=== PATIENT | male | born 1985 | race African-American/Black ===

== ENCOUNTER 2022-02-01 14:43 | Inpatient (IN) | payer MEDICAID ==
[~2022-02-01] VITALS: Ht 177.8 cm; Wt 91.7 kg
[2022-02-01] MEDS ORDERED: ACETAMINOPHEN 650MG SUPP PR STA (14:56)
[2022-02-01] MEDS ORDERED: SODIUM CHLORIDE 0.9% 1000ML BAG (SEPSIS BOLUS) IV ONE (15:00)
[2022-02-01 15:23] LABS: INR 1.2; PROTHROMBIN TIME 12.6 sec (9.6-11.0)
[2022-02-01 15:26] LABS: CHLORIDE 93 mEq/L (98-107)
[2022-02-01 15:28] LABS: HEMATOCRIT. 37.2 % (42.0-52.0); HEMOGLOBIN. 12.4 g/dL (14.0-18.0); MEAN CORPUSCULAR HEMOGLOBIN 27.6 pg (28.0-32.0); MEAN CORPUSCULAR VOLUME 82.7 fL (80.0-94.0); MEAN PLATELET VOLUME 10.8 fl (7.4-10.4); PLATELET 54 x1000/uL (130-400); RED BLOOD CELL COUNT 4.49 mill/uL (4.7-6.1); RED CELL DISTRIBUTION WIDTH 13.3 % (11.6-14.6)
[2022-02-01] MEDS ORDERED: VANCOMYCIN 1G PREMIX 200 ML IV ONE (15:30)
[2022-02-01] MEDS ORDERED: VANCOMYCIN 1GM PMX (XELLIA) 200 ML IV NR (15:30)
[2022-02-01] MEDS ORDERED: LORAZEPAM 2MG/ML CPJ IV NR (15:30)
[2022-02-01] MEDS ORDERED: PIPERACILLIN/TAZ 3.375G PREMIX 50 ML IV NR (15:30)
[2022-02-01 15:31] LABS: ETHANOL BLOOD < 10 mg/dL
[2022-02-01] MEDS ORDERED: ACETAMINOPHEN 325MG TABLET PO NR (15:45)
[2022-02-01] MEDS ORDERED: ACETAMINOPHEN 325MG SUPP PR ONE (17:15)
[2022-02-01 17:21] LABS: PLATELET ESTIMATE DECREASED
[2022-02-01 17:25] LABS: CLARITY URINE TURBID (CLEAR); COLOR URINE DARK YELLOW (YELLOW); KETONES URINE TRACE (NEGATIVE); LEUKOCYTE ESTERASE URINE TRACE (NEGATIVE); NITRITE URINE NEGATIVE (NEGATIVE); OCCULT BLOOD URINE 3+ (NEGATIVE); PROTEIN URINE 2+ (NEGATIVE); SPECIFIC GRAVITY URINE 1.017 (1.005-1.030)
[2022-02-01] MEDS ORDERED: PANTOPRAZOLE SODIUM 40 MG/VIAL IV NR (17:37)
[2022-02-01 17:44] LABS: *AMPHETAMINES SCREEN URINE PRESUMTIVE POSITIVE (NEGATIVE); *BARBITURATES SCREEN URINE NEGATIVE (NEGATIVE); *BENZODIAZEPINES SCREEN URINE NEGATIVE (NEGATIVE); *COCAINE SCREEN URINE NEGATIVE (NEGATIVE)
[2022-02-01 17:45] LABS: CANNABINOID URINE SCREEN PRESUMTIVE POSITIVE (NEGATIVE); METHADONE URINE SCREEN NEGATIVE (NEGATIVE); OPIATES URINE SCREEN NEGATIVE (NEGATIVE); PHENCYCLIDINE URINE SCREEN PRESUMTIVE POSITIVE (NEGATIVE)
[2022-02-01 18:30] LABS: BG BASE EXCESS -2.2 mmol/L (-2.0-2.0); BG CARBOXYHEMOGLOBIN 0.3 % (0.5-1.5); BG DEOXYHEMOGLOBIN 6.1 % (0.0-5.0); BG FRACTION INSPIRED OXYGEN 21; BG HCO3 ACT 21.5 mmol/L (22.0-26.0); BG METHEMOGLOBIN 0.1 % (0.0-1.5); BG OXYGEN SATURATION 93.9 % (92.0-98.5); BG OXYHEMOGLOBIN 93.5 % (94.0-97.0); BG PCO2 33.2 mmHg (35.0-45.0); BG PH 7.429 (7.350-7.450); BG PO2 72.2 mmHg (75.0-100.0); BG SAMPLE SITE RIGHT RADIAL; BG TOTAL HEMOGLOBIN 11.1 g/dL (12.0-18.0); BG VENT MODE ROOM AIR
[2022-02-01] MEDS ORDERED: ZOLPIDEM TARTRATE 5MG TABLET PO PRN (19:00)
[2022-02-01] MEDS ORDERED: MAGNESIUM/ALUMINUM HYDROXIDE/SIMETHICONE 30ML UDC PO PRN (19:00)
[2022-02-01] MEDS ORDERED: DOCUSATE SODIUM 100MG CAPSULE PO PRN (19:00)
[2022-02-01] MEDS ORDERED: IPRATROPIUM/ALBUTEROL 0.5-3(2.5)MG/3ML NEB NEB PRN (19:00)
[2022-02-01] MEDS ORDERED: NITROGLYCERIN 0.4MG TABLET SL SL PRN (19:00)
[2022-02-01] MEDS: DEXT 5%/0.45% NACL 1000ML 1,000 ML IV SCH (19:30)
[2022-02-01 19:41] LABS: T4 FREE 1.29 ng/dL (0.76-1.46)
[2022-02-01 19:51] LABS: FOLIC ACID (FOLATE) SERUM >20 ng/mL ng/mL (>5.38)
[2022-02-01 20:03] LABS: VITAMIN B12 SERUM 1511 pg/mL (211-911)
[2022-02-01 23:00] VITALS: BP 131/75
[2022-02-01] MEDS ORDERED: PIPERACILLIN/TAZ 3.375G PREMIX 50 ML IV SCH (23:00)
[2022-02-02] VITALS (24 sets, daily range): BP systolic 81–143; BP diastolic 27–86
[2022-02-02] MEDS: PIPERACILLIN/TAZOBACTAM 3.375 G in DEXTROSE 5% WATER 50 ML IV SCH ×4 (00:06→22:32)
[2022-02-02 01:14] LABS: CREATINE KINASE MB FRACTION 12.5 ng/mL (0.5-3.6)
[2022-02-02 01:24] LABS: CREATINE KINASE 1790 IU/L (39-308)
[2022-02-02 05:44] LABS: CHLORIDE 102 mEq/L (98-107)
[2022-02-02] MEDS: DEXT 5%/0.45% NACL 1000ML 1,000 ML IV SCH ×2 (05:46→15:31)
[2022-02-02 05:51] LABS: CREATINE KINASE MB FRACTION 9.9 ng/mL (0.5-3.6); PHOSPHORUS 3.3 mg/dL (2.5-4.9)
[2022-02-02 05:57] LABS: HEMATOCRIT. 36.2 % (42.0-52.0); HEMOGLOBIN. 11.5 g/dL (14.0-18.0); MEAN CORPUSCULAR HEMOGLOBIN 27.1 pg (28.0-32.0); MEAN CORPUSCULAR VOLUME 85.1 fL (80.0-94.0); MEAN PLATELET VOLUME 12.1 fl (7.4-10.4); RED BLOOD CELL COUNT 4.25 mill/uL (4.7-6.1); RED CELL DISTRIBUTION WIDTH 14.5 % (11.6-14.6)
[2022-02-02] MEDS: DILTIAZEM HCL 60MG TABLET PO SCH ×4 (06:00→17:20)
[2022-02-02] MEDS ORDERED: VANCOMYCIN 1.25GM PMX (XELLIA) 250 ML IV NR (06:00)
[2022-02-02 06:35] LABS: PLATELET 46 x1000/uL (130-400)
[2022-02-02] MEDS: PANTOPRAZOLE SODIUM 40 MG/VIAL IV SCH ×2 (06:37→17:32)
[2022-02-02] MEDS ORDERED: DILTIAZEM HCL 5MG/ML 5ML VIAL IV SCH (06:55)
[2022-02-02] MEDS ORDERED: SODIUM CHLORIDE 0.9% 1,000 ML IV SCH (06:56)
[2022-02-02] MEDS ORDERED: SODIUM CHLORIDE 0.9% 1,000 ML IV ONE ×2 (07:30→16:00)
[2022-02-02] MEDS: ACETAMINOPHEN 650MG SUPP PR PRN ×2 (08:47→17:36)
[2022-02-02] MEDS ORDERED: ASPIRIN 325MG EC TABLET PO SCH (09:00)
[2022-02-02 13:50] LABS: NUCLEATED RED BLOOD CELLS 1 /100 WBC; PLATELET ESTIMATE MARKEDLY DECREASED
[2022-02-02] MEDS ORDERED: LACTULOSE 20G/30ML UDC PO SCH (15:42)
[2022-02-03] VITALS (13 sets, daily range): BP systolic 94–141; BP diastolic 52–101
[2022-02-03] MEDS: DEXT 5%/0.45% NACL 1000ML 1,000 ML IV SCH ×3 (02:56→21:40)
[2022-02-03] MEDS: ACETAMINOPHEN 650MG SUPP PR PRN (03:32)
[2022-02-03] MEDS: DILTIAZEM HCL 60MG TABLET PO SCH ×4 (06:00→17:49)
[2022-02-03] MEDS: PANTOPRAZOLE SODIUM 40 MG/VIAL IV SCH ×2 (06:29→19:11)
[2022-02-03] MEDS: PIPERACILLIN/TAZOBACTAM 3.375 G in DEXTROSE 5% WATER 50 ML IV SCH ×3 (06:30→23:17)
[2022-02-03 11:26] LABS: BASOPHILS % 0.5 % (0.0-2.0); EOSINOPHILS % 1.4 % (0.0-5.0); HEMATOCRIT. 34.4 % (42.0-52.0); MEAN CORPUSCULAR HEMOGLOBIN 27.1 pg (28.0-32.0); MEAN CORPUSCULAR VOLUME 84.5 fL (80.0-94.0); MEAN PLATELET VOLUME 11.2 fl (7.4-10.4); MONOCYTES % 3.7 % (2.0-8.0); NEUTROPHILS % 73.4 % (40.0-76.0); RED BLOOD CELL COUNT 4.07 mill/uL (4.7-6.1); RED CELL DISTRIBUTION WIDTH 14.6 % (11.6-14.6)
[2022-02-03 11:31] LABS: PLATELET 48 x1000/uL (130-400)
[2022-02-03] MEDS: VANCOMYCIN 1GM PMX (XELLIA) 200 ML IV SCH ×2 (11:45→23:18)
[2022-02-03 13:46] LABS: PLATELET ESTIMATE MARKEDLY DECREASED
[2022-02-03] MEDS: ONDANSETRON HCL 4MG/2ML INJ IV PRN (15:17)
[2022-02-03] MEDS: ACETAMINOPHEN 325MG TABLET PO PRN (16:16)
[2022-02-03] MEDS ORDERED: SODIUM CHLORIDE 0.9% 1,000 ML IV ONE (16:45)
[2022-02-04] VITALS (14 sets, daily range): BP systolic 95–164; BP diastolic 42–93
[2022-02-04] MEDS: PIPERACILLIN/TAZOBACTAM 3.375 G in DEXTROSE 5% WATER 50 ML IV SCH ×2 (05:59→14:01)
[2022-02-04] MEDS: DILTIAZEM HCL 60MG TABLET PO SCH ×2 (06:03)
[2022-02-04] MEDS: PANTOPRAZOLE SODIUM 40 MG/VIAL IV SCH ×2 (06:03→17:11)
[2022-02-04] MEDS: ACETAMINOPHEN 650MG SUPP PR PRN (08:00)
[2022-02-04] MEDS: DEXT 5%/0.45% NACL 1000ML 1,000 ML IV SCH ×2 (08:31→17:13)
[2022-02-04] MEDS: VANCOMYCIN 1GM PMX (XELLIA) 200 ML IV SCH (10:19)
[2022-02-04] MEDS ORDERED: METOCLOPRAMIDE HCL 10MG/2ML VIAL IV SCH (11:00)
[2022-02-04] MEDS: DILTIAZEM HCL 30MG TABLET PO SCH ×3 (12:59→23:16)
[2022-02-04 15:35] LABS: BASOPHILS % 0.4 % (0.0-2.0); EOSINOPHILS % 0.3 % (0.0-5.0); HEMATOCRIT. 25.5 % (42.0-52.0); HEMOGLOBIN. 8.4 g/dL (14.0-18.0); LYMPHOCYTES % 11.7 % (20.0-50.0); MEAN CORPUSCULAR VOLUME 82.3 fL (80.0-94.0); MEAN PLATELET VOLUME 10.4 fl (7.4-10.4); MONOCYTES % 5.4 % (2.0-8.0); NEUTROPHILS % 82.2 % (40.0-76.0); PLATELET 77 x1000/uL (130-400); RED CELL DISTRIBUTION WIDTH 13.9 % (11.6-14.6)
[2022-02-04] MEDS ORDERED: AMPICILLIN SOD/SULBACTAM NA 3 G in SODIUM CHLORIDE 0.9% 100 ML IV SCH (17:00)
[2022-02-04] MEDS: AMPICILLIN SOD/SULBACTAM NA 3 G in SODIUM CHLORIDE 0.9% 100 ML IV SCH ×2 (17:12→23:16)
[2022-02-04] MEDS ORDERED: VANCOMYCIN 1GM PMX (XELLIA) 200 ML IV SCH (18:00)
[2022-02-04] MEDS: METRONIDAZOLE 500MG TABLET PO SCH ×2 (18:43→22:11)
[2022-02-04] MEDS: ACETAMINOPHEN 325MG TABLET PO PRN (23:14)
[2022-02-05] VITALS (7 sets, daily range): BP systolic 127–149; BP diastolic 50–85
[2022-02-05] MEDS: DEXT 5%/0.45% NACL 1000ML 1,000 ML IV SCH ×3 (03:30→22:59)
[2022-02-05] MEDS: DILTIAZEM HCL 30MG TABLET PO SCH ×4 (05:25→23:49)
[2022-02-05] MEDS: AMPICILLIN SOD/SULBACTAM NA 3 G in SODIUM CHLORIDE 0.9% 100 ML IV SCH ×4 (05:25→23:47)
[2022-02-05] MEDS: PANTOPRAZOLE SODIUM 40 MG/VIAL IV SCH ×2 (05:25→17:39)
[2022-02-05] MEDS: METRONIDAZOLE 500MG TABLET PO SCH ×3 (05:25→21:52)
[2022-02-05 10:24] LABS: BASOPHILS % 0.1 % (0.0-2.0); EOSINOPHILS % 0.2 % (0.0-5.0); HEMATOCRIT. 25.9 % (42.0-52.0); HEMOGLOBIN. 8.8 g/dL (14.0-18.0); LYMPHOCYTES % 10.2 % (20.0-50.0); MEAN CORPUSCULAR HEMOGLOBIN 27.6 pg (28.0-32.0); MEAN CORPUSCULAR VOLUME 81.5 fL (80.0-94.0); MEAN PLATELET VOLUME 9.5 fl (7.4-10.4); MONOCYTES % 5.2 % (2.0-8.0); NEUTROPHILS % 84.3 % (40.0-76.0); PLATELET 107 x1000/uL (130-400); RED BLOOD CELL COUNT 3.18 mill/uL (4.7-6.1); RED CELL DISTRIBUTION WIDTH 13.4 % (11.6-14.6)
[2022-02-05 10:35] LABS: CHLORIDE 104 mEq/L (98-107)
[2022-02-05 10:52] LABS: VANCOMYCIN TROUGH 2.2 ug/mL (5.0-10.0)
[2022-02-05 11:58] LABS: HEPATITIS B SURFACE ANTIGEN NEGATIVE
[2022-02-05] MEDS ORDERED: ENOXAPARIN 100MG/ML SYR SUBCUT SCH (12:00)
[2022-02-05] MEDS: ACETAMINOPHEN 325MG TABLET PO PRN ×2 (16:04→20:36)
[2022-02-05] MEDS ORDERED: POTASSIUM CHLORIDE INJ 40 MEQ in DEXT 5% WATER 250 ML IV ONE (19:30)
[2022-02-05] MEDS ORDERED: POTASSIUM CHLORIDE 20MEQ TABLET SR PO NR (19:30)
[2022-02-05] MEDS: KCL 20MEQ/100ML X 2 FOR TOTAL KCL 40MEQ/200ML IV SCH ×2 (20:37→22:56)
[2022-02-05] MEDS: ENOXAPARIN 100MG/ML SYR SUBCUT SCH (21:53)
[2022-02-06] VITALS (11 sets, daily range): BP systolic 139–160; BP diastolic 50–102
[2022-02-06] MEDS: ACETAMINOPHEN 325MG TABLET PO PRN ×2 (03:19→21:15)
[2022-02-06] MEDS: AMPICILLIN SOD/SULBACTAM NA 3 G in SODIUM CHLORIDE 0.9% 100 ML IV SCH ×4 (05:08→23:32)
[2022-02-06] MEDS: PANTOPRAZOLE SODIUM 40 MG/VIAL IV SCH ×2 (05:08→17:05)
[2022-02-06] MEDS: DILTIAZEM HCL 30MG TABLET PO SCH ×4 (05:08→23:33)
[2022-02-06] MEDS: METRONIDAZOLE 500MG TABLET PO SCH ×3 (05:13→21:15)
[2022-02-06 07:09] LABS: HIV SCREEN 4G Non Reactive (Non Reactive)
[2022-02-06] MEDS: DEXT 5%/0.45% NACL 1000ML 1,000 ML IV SCH ×2 (09:20→19:30)
[2022-02-06] MEDS: ENOXAPARIN 100MG/ML SYR SUBCUT SCH ×2 (09:20→21:16)
[2022-02-06] MEDS: CLONIDINE 0.1MG TABLET PO PRN (09:21)
[2022-02-06] MEDS: LACTULOSE 20G/30ML UDC PO SCH (21:15)
[2022-02-07] VITALS (10 sets, daily range): BP systolic 128–162; BP diastolic 65–94
[2022-02-07] MEDS: DEXT 5%/0.45% NACL 1000ML 1,000 ML IV SCH ×2 (04:35→15:53)
[2022-02-07] MEDS: LACTULOSE 20G/30ML UDC PO SCH ×3 (05:17→21:36)
[2022-02-07] MEDS: PANTOPRAZOLE SODIUM 40 MG/VIAL IV SCH ×2 (05:17→17:37)
[2022-02-07] MEDS: DILTIAZEM HCL 30MG TABLET PO SCH ×3 (05:18→17:37)
[2022-02-07] MEDS: AMPICILLIN SOD/SULBACTAM NA 3 G in SODIUM CHLORIDE 0.9% 100 ML IV SCH ×3 (05:19→17:37)
[2022-02-07] MEDS: ACETAMINOPHEN 325MG TABLET PO PRN ×3 (05:19→22:03)
[2022-02-07] MEDS: METRONIDAZOLE 500MG TABLET PO SCH ×3 (05:21→21:36)
[2022-02-07 06:51] LABS: CHLORIDE 103 mEq/L (98-107)
[2022-02-07 06:58] LABS: BASOPHILS % 0.2 % (0.0-2.0); EOSINOPHILS % 0.3 % (0.0-5.0); HEMATOCRIT. 21.2 % (42.0-52.0); HEMOGLOBIN. 7.3 g/dL (14.0-18.0); LYMPHOCYTES % 7.6 % (20.0-50.0); MEAN CORPUSCULAR HEMOGLOBIN 28.7 pg (28.0-32.0); MEAN CORPUSCULAR VOLUME 83.3 fL (80.0-94.0); MEAN PLATELET VOLUME 9.6 fl (7.4-10.4); MONOCYTES % 5.2 % (2.0-8.0); NEUTROPHILS % 86.7 % (40.0-76.0); PLATELET 142 x1000/uL (130-400); RED BLOOD CELL COUNT 2.55 mill/uL (4.7-6.1); RED CELL DISTRIBUTION WIDTH 13.6 % (11.6-14.6)
[2022-02-07] MEDS: ENOXAPARIN 100MG/ML SYR SUBCUT SCH ×2 (08:39→21:36)
[2022-02-07] MEDS ORDERED: POTASSIUM CHLORIDE INJ 40 MEQ in DEXT 5% WATER 250 ML IV ONE (19:30)
[2022-02-07] MEDS ORDERED: POTASSIUM CHLORIDE 20MEQ/PACKET PO NR (20:00)
[2022-02-07] MEDS: KCL 20MEQ/100ML X 2 FOR TOTAL KCL 40MEQ/200ML IV SCH (21:35)
[2022-02-08] VITALS (16 sets, daily range): BP systolic 100–160; BP diastolic 49–98
[2022-02-08] MEDS: KCL 20MEQ/100ML X 2 FOR TOTAL KCL 40MEQ/200ML IV SCH ×3 (00:45→15:52)
[2022-02-08] MEDS: AMPICILLIN SOD/SULBACTAM NA 3 G in SODIUM CHLORIDE 0.9% 100 ML IV SCH ×4 (00:45→18:56)
[2022-02-08] MEDS: DILTIAZEM HCL 30MG TABLET PO SCH ×5 (00:46→23:07)
[2022-02-08] MEDS: DEXT 5%/0.45% NACL 1000ML 1,000 ML IV SCH ×3 (01:49→22:57)
[2022-02-08] MEDS: METRONIDAZOLE 500MG TABLET PO SCH ×3 (06:06→21:52)
[2022-02-08] MEDS: LACTULOSE 20G/30ML UDC PO SCH ×4 (06:06→21:55)
[2022-02-08] MEDS: PANTOPRAZOLE SODIUM 40 MG/VIAL IV SCH ×2 (06:06→16:42)
[2022-02-08] MEDS: GUAIFENESIN 200MG/10ML SUGAR FREE UDC PO PRN ×2 (08:19→16:42)
[2022-02-08] MEDS: ENOXAPARIN 100MG/ML SYR SUBCUT SCH (08:20)
[2022-02-08] MEDS: ACETAMINOPHEN 325MG TABLET PO PRN ×2 (08:21→20:26)
[2022-02-08] MEDS ORDERED: POTASSIUM CHLORIDE INJ 40 MEQ in DEXT 5% WATER 250 ML IV ONE (13:15)
[2022-02-08] MEDS ORDERED: POTASSIUM CHLORIDE 20MEQ/PACKET PO NR (13:24)
[2022-02-08 18:59] LABS: BASOPHILS % 0.3 % (0.0-2.0); EOSINOPHILS % 0.3 % (0.0-5.0); LYMPHOCYTES % 8.8 % (20.0-50.0); MEAN CORPUSCULAR HEMOGLOBIN 27.7 pg (28.0-32.0); MEAN PLATELET VOLUME 9.5 fl (7.4-10.4); MONOCYTES % 3.4 % (2.0-8.0); NEUTROPHILS % 87.2 % (40.0-76.0); PLATELET 200 x1000/uL (130-400); RED BLOOD CELL COUNT 2.34 mill/uL (4.7-6.1); RED CELL DISTRIBUTION WIDTH 13.4 % (11.6-14.6)
[2022-02-08 19:09] LABS: HEMATOCRIT. 19.4 % (42.0-52.0); HEMOGLOBIN. 6.5 g/dL (14.0-18.0)
[2022-02-08 19:10] LABS: CHLORIDE 106 mEq/L (98-107)
[2022-02-09] VITALS (15 sets, daily range): BP systolic 111–168; BP diastolic 69–116
[2022-02-09] MEDS: AMPICILLIN SOD/SULBACTAM NA 3 G in SODIUM CHLORIDE 0.9% 100 ML IV SCH ×4 (00:39→17:19)
[2022-02-09] MEDS: ACETAMINOPHEN 325MG TABLET PO PRN ×2 (01:28→08:16)
[2022-02-09] MEDS: ONDANSETRON HCL 4MG/2ML INJ IV PRN ×2 (02:23→19:51)
[2022-02-09] MEDS: KETOROLAC 15MG/ML VIAL IV PRN ×2 (04:40→19:51)
[2022-02-09] MEDS: METRONIDAZOLE 500MG TABLET PO SCH ×2 (06:49→13:23)
[2022-02-09] MEDS: PANTOPRAZOLE SODIUM 40 MG/VIAL IV SCH ×2 (06:49→17:18)
[2022-02-09] MEDS: DILTIAZEM HCL 30MG TABLET PO SCH ×3 (06:50→17:20)
[2022-02-09] MEDS: LACTULOSE 20G/30ML UDC PO SCH ×3 (06:50→21:42)
[2022-02-09] MEDS: DEXT 5%/0.45% NACL 1000ML 1,000 ML IV SCH (08:15)
[2022-02-09] MEDS ORDERED: SORBITOL 70% SOLN 30ML PO NR (13:00)
[2022-02-09 14:07] LABS: BASOPHILS % 0.1 % (0.0-2.0); EOSINOPHILS % 0.2 % (0.0-5.0); HEMATOCRIT. 25.1 % (42.0-52.0); LYMPHOCYTES % 8.2 % (20.0-50.0); MEAN CORPUSCULAR HEMOGLOBIN 27.3 pg (28.0-32.0); MEAN CORPUSCULAR VOLUME 83.3 fL (80.0-94.0); MEAN PLATELET VOLUME 9.2 fl (7.4-10.4); MONOCYTES % 4.8 % (2.0-8.0); NEUTROPHILS % 86.7 % (40.0-76.0); PLATELET 263 x1000/uL (130-400); RED BLOOD CELL COUNT 3.02 mill/uL (4.7-6.1); RED CELL DISTRIBUTION WIDTH 13.9 % (11.6-14.6)
[2022-02-09 14:16] LABS: INR 1.3
[2022-02-09 14:31] LABS: HEMOGLOBIN. 8.2 g/dL (14.0-18.0)
[2022-02-09 14:34] LABS: CHLORIDE 110 mEq/L (98-107)
[2022-02-09 21:04] LABS: HEMATOCRIT 23.6 % (42.0-52.0); HEMOGLOBIN 7.8 g/dL (14.0-18.0)
[2022-02-10] VITALS (12 sets, daily range): BP systolic 135–185; BP diastolic 68–100
[2022-02-10] MEDS: DILTIAZEM HCL 30MG TABLET PO SCH ×6 (00:10→23:20)
[2022-02-10] MEDS: AMPICILLIN SOD/SULBACTAM NA 3 G in SODIUM CHLORIDE 0.9% 100 ML IV SCH ×5 (00:10→23:20)
[2022-02-10] MEDS: ACETAMINOPHEN 325MG TABLET PO PRN ×3 (00:14→23:21)
[2022-02-10] MEDS: DEXT 5%/0.45% NACL 1000ML 1,000 ML IV SCH ×2 (00:25→12:39)
[2022-02-10 01:10] LABS: HEMATOCRIT 21.9 % (42.0-52.0); HEMOGLOBIN 7.4 g/dL (14.0-18.0)
[2022-02-10] MEDS: LACTULOSE 20G/30ML UDC PO SCH ×3 (05:57→22:10)
[2022-02-10] MEDS: PANTOPRAZOLE SODIUM 40 MG/VIAL IV SCH ×2 (05:57→17:56)
[2022-02-10 06:31] LABS: BASOPHILS % 0.5 % (0.0-2.0); EOSINOPHILS % 0.1 % (0.0-5.0); HEMOGLOBIN. 7.1 g/dL (14.0-18.0); LYMPHOCYTES % 9.8 % (20.0-50.0); MEAN CORPUSCULAR HEMOGLOBIN 28.5 pg (28.0-32.0); MEAN PLATELET VOLUME 8.7 fl (7.4-10.4); MONOCYTES % 5.7 % (2.0-8.0); NEUTROPHILS % 83.9 % (40.0-76.0); PLATELET 247 x1000/uL (130-400); RED BLOOD CELL COUNT 2.49 mill/uL (4.7-6.1); RED CELL DISTRIBUTION WIDTH 13.7 % (11.6-14.6)
[2022-02-10 07:07] LABS: HEMATOCRIT. 20.7 % (42.0-52.0)
[2022-02-10 07:12] LABS: CHLORIDE 109 mEq/L (98-107)
[2022-02-10] MEDS ORDERED: FUROSEMIDE 40MG/4ML VIAL IVP NR (08:45)
[2022-02-10] MEDS: CLONIDINE 0.1MG TABLET PO PRN (09:01)
[2022-02-10 11:37] LABS: HEMATOCRIT 24.4 % (42.0-52.0); HEMOGLOBIN 8.3 g/dL (14.0-18.0)
[2022-02-10] MEDS: KETOROLAC 15MG/ML VIAL IV PRN (16:50)
[2022-02-10] MEDS: ONDANSETRON HCL 4MG/2ML INJ IV PRN (20:11)
[2022-02-11] VITALS (12 sets, daily range): BP systolic 116–184; BP diastolic 47–101
[2022-02-11 01:54] LABS: BASOPHILS % 0.2 % (0.0-2.0); EOSINOPHILS % 0.2 % (0.0-5.0); HEMATOCRIT. 22.2 % (42.0-52.0); HEMOGLOBIN. 7.5 g/dL (14.0-18.0); LYMPHOCYTES % 7.4 % (20.0-50.0); MEAN CORPUSCULAR HEMOGLOBIN 28.2 pg (28.0-32.0); MEAN CORPUSCULAR VOLUME 83.2 fL (80.0-94.0); MEAN PLATELET VOLUME 8.9 fl (7.4-10.4); MONOCYTES % 3.6 % (2.0-8.0); NEUTROPHILS % 88.6 % (40.0-76.0); PLATELET 330 x1000/uL (130-400); RED BLOOD CELL COUNT 2.67 mill/uL (4.7-6.1); RED CELL DISTRIBUTION WIDTH 13.6 % (11.6-14.6)
[2022-02-11 01:58] LABS: CHLORIDE 105 mEq/L (98-107)
[2022-02-11] MEDS: DEXT 5%/0.45% NACL 1000ML 1,000 ML IV SCH ×3 (02:51→19:30)
[2022-02-11] MEDS: LACTULOSE 20G/30ML UDC PO SCH ×3 (06:00→21:46)
[2022-02-11] MEDS: PANTOPRAZOLE SODIUM 40 MG/VIAL IV SCH ×2 (06:05→18:10)
[2022-02-11] MEDS: AMPICILLIN SOD/SULBACTAM NA 3 G in SODIUM CHLORIDE 0.9% 100 ML IV SCH ×2 (06:05→12:08)
[2022-02-11] MEDS: DILTIAZEM HCL 30MG TABLET PO SCH ×3 (06:06→18:10)
[2022-02-11] MEDS: GUAIFENESIN 200MG/10ML SUGAR FREE UDC PO PRN (09:46)
[2022-02-11] MEDS: KETOROLAC 15MG/ML VIAL IV PRN (14:27)
[2022-02-11] MEDS ORDERED: CEFTRIAXONE 2 G PREMIX 50 ML IV SCH (14:45)
[2022-02-11] MEDS: ACETAMINOPHEN 325MG TABLET PO PRN (16:55)
[2022-02-11] MEDS: CEFTRIAXONE 2 G in DEXTROSE 5% WATER 50 ML IV SCH (16:55)
[2022-02-11] MEDS: METRONIDAZOLE 500MG TABLET PO SCH (22:32)
[2022-02-12] VITALS (15 sets, daily range): BP systolic 127–170; BP diastolic 65–113
[2022-02-12] MEDS: DILTIAZEM HCL 30MG TABLET PO SCH ×5 (01:45→23:24)
[2022-02-12] MEDS: KETOROLAC 15MG/ML VIAL IV PRN (01:56)
[2022-02-12] MEDS: ACETAMINOPHEN 325MG TABLET PO PRN ×3 (02:30→20:40)
[2022-02-12] MEDS: LACTULOSE 20G/30ML UDC PO SCH ×3 (05:23→22:18)
[2022-02-12] MEDS: PANTOPRAZOLE SODIUM 40 MG/VIAL IV SCH ×2 (06:08→20:44)
[2022-02-12] MEDS: DEXT 5%/0.45% NACL 1000ML 1,000 ML IV SCH ×2 (06:09→12:26)
[2022-02-12] MEDS: METRONIDAZOLE 500MG TABLET PO SCH ×3 (06:09→22:18)
[2022-02-12 06:22] LABS: BASOPHILS % 0.3 % (0.0-2.0); EOSINOPHILS % 0.1 % (0.0-5.0); HEMATOCRIT. 21.7 % (42.0-52.0); HEMOGLOBIN. 7.4 g/dL (14.0-18.0); LYMPHOCYTES % 8.4 % (20.0-50.0); MEAN CORPUSCULAR HEMOGLOBIN 28.1 pg (28.0-32.0); MEAN PLATELET VOLUME 8.5 fl (7.4-10.4); MONOCYTES % 6.4 % (2.0-8.0); NEUTROPHILS % 84.8 % (40.0-76.0); PLATELET 427 x1000/uL (130-400); RED BLOOD CELL COUNT 2.64 mill/uL (4.7-6.1); RED CELL DISTRIBUTION WIDTH 14.3 % (11.6-14.6)
[2022-02-12 07:12] LABS: CHLORIDE 108 mEq/L (98-107)
[2022-02-12] MEDS: CEFTRIAXONE 2 G in DEXTROSE 5% WATER 50 ML IV SCH (12:26)
[2022-02-12] MEDS: FUROSEMIDE 20MG/2ML VIAL IVP SCH (13:59)
[2022-02-12] MEDS: ONDANSETRON HCL 4MG/2ML INJ IV PRN (15:45)
[2022-02-12] MEDS: CLONIDINE 0.1MG TABLET PO PRN (22:18)
[2022-02-13] VITALS (12 sets, daily range): BP systolic 131–165; BP diastolic 59–96
[2022-02-13] MEDS: DEXT 5%/0.45% NACL 1000ML 1,000 ML IV SCH ×3 (00:59→22:20)
[2022-02-13] MEDS: LACTULOSE 20G/30ML UDC PO SCH ×3 (05:30→22:00)
[2022-02-13] MEDS: DILTIAZEM HCL 30MG TABLET PO SCH ×3 (05:30→17:45)
[2022-02-13] MEDS: METRONIDAZOLE 500MG TABLET PO SCH ×3 (05:31→22:19)
[2022-02-13 05:50] LABS: BASOPHILS % 0.4 % (0.0-2.0); EOSINOPHILS % 0.1 % (0.0-5.0); HEMOGLOBIN. 8.8 g/dL (14.0-18.0); LYMPHOCYTES % 11.1 % (20.0-50.0); MEAN CORPUSCULAR VOLUME 82.9 fL (80.0-94.0); MEAN PLATELET VOLUME 8.3 fl (7.4-10.4); MONOCYTES % 8.5 % (2.0-8.0); NEUTROPHILS % 79.9 % (40.0-76.0); PLATELET 472 x1000/uL (130-400); RED BLOOD CELL COUNT 3.02 mill/uL (4.7-6.1); RED CELL DISTRIBUTION WIDTH 14.4 % (11.6-14.6)
[2022-02-13 05:53] LABS: INR 1.3; PROTHROMBIN TIME 13.4 sec (9.6-11.0)
[2022-02-13 06:32] LABS: CHLORIDE 105 mEq/L (98-107)
[2022-02-13] MEDS: PANTOPRAZOLE SODIUM 40 MG/VIAL IV SCH ×2 (08:34→20:10)
[2022-02-13] MEDS: FUROSEMIDE 20MG/2ML VIAL IVP SCH (08:35)
[2022-02-13] MEDS ORDERED: PROPOFOL 200MG/20ML VIAL IV ONE (11:31)
[2022-02-13] MEDS ORDERED: MIDAZOLAM HCL 5 MG/5 ML VIAL ONE (11:31)
[2022-02-13] MEDS ORDERED: LIDOCAINE HCL 1% 20ML VIAL (Pyxis) INJ ONE (11:31)
[2022-02-13] MEDS ORDERED: PHENYLEPHRINE HCL 10 MG/ML 1ML (IV VIAL) IV ONE (12:52)
[2022-02-13] MEDS: CEFTRIAXONE 2 G in DEXTROSE 5% WATER 50 ML IV SCH (15:23)
[2022-02-13] MEDS: SUCRALFATE 1G TABLET PO SCH ×2 (17:45→20:10)
[2022-02-13] MEDS: ACETAMINOPHEN 325MG TABLET PO PRN (20:10)
[2022-02-14] VITALS (11 sets, daily range): BP systolic 142–170; BP diastolic 67–97
[2022-02-14] MEDS: DILTIAZEM HCL 30MG TABLET PO SCH ×5 (00:36→23:46)
[2022-02-14] MEDS: METRONIDAZOLE 500MG TABLET PO SCH ×3 (05:35→22:19)
[2022-02-14] MEDS: LACTULOSE 20G/30ML UDC PO SCH ×3 (05:38→22:00)
[2022-02-14 06:23] LABS: CHLORIDE 107 mEq/L (98-107)
[2022-02-14] MEDS: PANTOPRAZOLE SODIUM 40 MG/VIAL IV SCH ×2 (08:44→20:51)
[2022-02-14] MEDS: FUROSEMIDE 20MG/2ML VIAL IVP SCH (08:44)
[2022-02-14] MEDS: SUCRALFATE 1G TABLET PO SCH ×4 (08:44→20:51)
[2022-02-14] MEDS: DEXT 5%/0.45% NACL 1000ML 1,000 ML IV SCH ×2 (08:44→17:03)
[2022-02-14] MEDS: CEFTRIAXONE 2 G in DEXTROSE 5% WATER 50 ML IV SCH (14:04)
[2022-02-14] MEDS: GUAIFENESIN 200MG/10ML SUGAR FREE UDC PO PRN (14:04)
[2022-02-14] MEDS: ACETAMINOPHEN 325MG TABLET PO PRN (19:18)
[2022-02-15] VITALS (12 sets, daily range): BP systolic 129–161; BP diastolic 81–98
[2022-02-15] MEDS: DEXT 5%/0.45% NACL 1000ML 1,000 ML IV SCH ×3 (03:19→23:21)
[2022-02-15] MEDS: ONDANSETRON HCL 4MG/2ML INJ IV PRN (03:20)
[2022-02-15] MEDS: METRONIDAZOLE 500MG TABLET PO SCH ×3 (05:42→21:36)
[2022-02-15] MEDS: DILTIAZEM HCL 30MG TABLET PO SCH ×4 (05:43→23:20)
[2022-02-15] MEDS: LACTULOSE 20G/30ML UDC PO SCH ×3 (05:46→21:39)
[2022-02-15 06:04] LABS: BASOPHILS % 0.4 % (0.0-2.0); EOSINOPHILS % 0.1 % (0.0-5.0); HEMATOCRIT. 26.4 % (42.0-52.0); HEMOGLOBIN. 8.8 g/dL (14.0-18.0); LYMPHOCYTES % 15.7 % (20.0-50.0); MEAN CORPUSCULAR HEMOGLOBIN 28.3 pg (28.0-32.0); MEAN CORPUSCULAR VOLUME 84.6 fL (80.0-94.0); MEAN PLATELET VOLUME 7.9 fl (7.4-10.4); MONOCYTES % 12.6 % (2.0-8.0); NEUTROPHILS % 71.2 % (40.0-76.0); PLATELET 538 x1000/uL (130-400); RED BLOOD CELL COUNT 3.12 mill/uL (4.7-6.1); RED CELL DISTRIBUTION WIDTH 14.7 % (11.6-14.6)
[2022-02-15] MEDS: CLONIDINE 0.1MG TABLET PO PRN (06:14)
[2022-02-15 06:33] LABS: CHLORIDE 105 mEq/L (98-107)
[2022-02-15] MEDS: SUCRALFATE 1G TABLET PO SCH ×4 (07:30→21:36)
[2022-02-15] MEDS: PANTOPRAZOLE SODIUM 40 MG/VIAL IV SCH ×2 (09:26→21:36)
[2022-02-15] MEDS: FUROSEMIDE 20MG/2ML VIAL IVP SCH (09:26)
[2022-02-15] MEDS: CEFTRIAXONE 2 G in DEXTROSE 5% WATER 50 ML IV SCH (15:35)
[2022-02-16] VITALS (7 sets, daily range): BP systolic 137–158; BP diastolic 86–96
[2022-02-16] MEDS: LACTULOSE 20G/30ML UDC PO SCH ×3 (06:00→20:58)
[2022-02-16] MEDS: SUCRALFATE 1G TABLET PO SCH ×4 (06:03→20:57)
[2022-02-16] MEDS: METRONIDAZOLE 500MG TABLET PO SCH ×3 (06:03→20:58)
[2022-02-16] MEDS: DILTIAZEM HCL 30MG TABLET PO SCH ×3 (06:05→17:59)
[2022-02-16] MEDS: PANTOPRAZOLE SODIUM 40 MG/VIAL IV SCH ×2 (08:53→20:58)
[2022-02-16] MEDS: FUROSEMIDE 20MG/2ML VIAL IVP SCH (08:53)
[2022-02-16] MEDS: DEXT 5%/0.45% NACL 1000ML 1,000 ML IV SCH ×2 (08:53→15:02)
[2022-02-16] MEDS: ACETAMINOPHEN 325MG TABLET PO PRN (12:03)
[2022-02-16] MEDS: CEFTRIAXONE 2 G in DEXTROSE 5% WATER 50 ML IV SCH (15:02)
[2022-02-17] VITALS (7 sets, daily range): BP systolic 132–167; BP diastolic 72–90
[2022-02-17] MEDS: DILTIAZEM HCL 30MG TABLET PO SCH ×4 (00:19→17:28)
[2022-02-17] MEDS: DEXT 5%/0.45% NACL 1000ML 1,000 ML IV SCH ×2 (00:19→15:28)
[2022-02-17] MEDS: LACTULOSE 20G/30ML UDC PO SCH ×3 (06:00→22:00)
[2022-02-17] MEDS: METRONIDAZOLE 500MG TABLET PO SCH ×3 (06:09→22:18)
[2022-02-17] MEDS: SUCRALFATE 1G TABLET PO SCH ×4 (06:11→22:18)
[2022-02-17 07:14] LABS: BASOPHILS % 0.5 % (0.0-2.0); EOSINOPHILS % 0.5 % (0.0-5.0); HEMATOCRIT. 27.6 % (42.0-52.0); HEMOGLOBIN. 9.3 g/dL (14.0-18.0); LYMPHOCYTES % 19.9 % (20.0-50.0); MEAN CORPUSCULAR HEMOGLOBIN 28.5 pg (28.0-32.0); MEAN CORPUSCULAR VOLUME 84.2 fL (80.0-94.0); MEAN PLATELET VOLUME 7.6 fl (7.4-10.4); MONOCYTES % 11.1 % (2.0-8.0); PLATELET 537 x1000/uL (130-400); RED BLOOD CELL COUNT 3.27 mill/uL (4.7-6.1)
[2022-02-17 07:23] LABS: CHLORIDE 106 mEq/L (98-107)
[2022-02-17] MEDS: PANTOPRAZOLE SODIUM 40 MG/VIAL IV SCH ×2 (09:07→21:00)
[2022-02-17] MEDS: FUROSEMIDE 20MG/2ML VIAL IVP SCH (09:08)
[2022-02-17] MEDS: CEFTRIAXONE 2 G in DEXTROSE 5% WATER 50 ML IV SCH (14:00)
[2022-02-18] VITALS: BP 138/80
[2022-02-18] MEDS: DILTIAZEM HCL 30MG TABLET PO SCH ×3 (00:58→12:29)
[2022-02-18] MEDS: DEXT 5%/0.45% NACL 1000ML 1,000 ML IV SCH ×2 (00:59→11:59)
[2022-02-18 04:00] VITALS: BP 135/83
[2022-02-18] MEDS: LACTULOSE 20G/30ML UDC PO SCH ×2 (06:00→13:56)
[2022-02-18] MEDS: METRONIDAZOLE 500MG TABLET PO SCH ×2 (06:27→14:06)
[2022-02-18] MEDS: SUCRALFATE 1G TABLET PO SCH ×2 (06:31→12:29)
[2022-02-18 07:29] LABS: BASOPHILS % 0.5 % (0.0-2.0); EOSINOPHILS % 0.6 % (0.0-5.0); HEMATOCRIT. 28.3 % (42.0-52.0); HEMOGLOBIN. 9.4 g/dL (14.0-18.0); LYMPHOCYTES % 21.4 % (20.0-50.0); MEAN CORPUSCULAR HEMOGLOBIN 28.1 pg (28.0-32.0); MEAN CORPUSCULAR VOLUME 84.6 fL (80.0-94.0); MEAN PLATELET VOLUME 7.7 fl (7.4-10.4); MONOCYTES % 11.6 % (2.0-8.0); NEUTROPHILS % 65.9 % (40.0-76.0); PLATELET 542 x1000/uL (130-400); RED BLOOD CELL COUNT 3.35 mill/uL (4.7-6.1); RED CELL DISTRIBUTION WIDTH 15.1 % (11.6-14.6)
[2022-02-18 07:52] LABS: CHLORIDE 104 mEq/L (98-107)
[2022-02-18 08:00] VITALS: BP 151/97
[2022-02-18] MEDS: PANTOPRAZOLE SODIUM 40 MG/VIAL IV SCH (08:32)
[2022-02-18] MEDS: FUROSEMIDE 20MG/2ML VIAL IVP SCH (08:32)
[2022-02-18 12:00] VITALS: BP 143/89
[2022-02-18] MEDS ORDERED: PROT40 MT (13:43)
[2022-02-18] MEDS ORDERED: AMLO5TAB4 MT (13:43)
[2022-02-18] MEDS ORDERED: SUCR1TAB30 MT (13:43)
[2022-02-18 13:50] VITALS: BP 143/89
[2022-02-18] MEDS: CEFTRIAXONE 2 G in DEXTROSE 5% WATER 50 ML IV SCH (14:06)
== END 2022-02-18 15:31 | disposition home health service (06) | DRG 720 ==
LOC: ER 14:52 → 5EST 18:05 → EDBEDREQTM 18:09 → EDBEDREQ 18:09 → ENRESERV 19:20 → 6EST 02-16 09:46
PROVIDERS: ADMIT Internal Medicine; ATTEND Internal Medicine
PROC: 02HV33Z Insertion of Infusion Device into Superior Vena Cava, Percutaneous Approach (ICD-10-PCS; principal; 2022-02-04)
PROC: B5181ZA Fluoroscopy of Superior Vena Cava using Low Osmolar Contrast, Guidance (ICD-10-PCS; 2022-02-04)
PROC: B548ZZA Ultrasonography of Superior Vena Cava, Guidance (ICD-10-PCS; 2022-02-04)
PROC: 30233N1 Transfusion of Nonautologous Red Blood Cells into Peripheral Vein, Percutaneous Approach (ICD-10-PCS; 2022-02-09)
PROC: 0DB68ZX Excision of Stomach, Via Natural or Artificial Opening Endoscopic, Diagnostic (ICD-10-PCS; 2022-02-13)
DX: A41.9 Sepsis, unspecified organism (principal); N17.0 Acute kidney failure with tubular necrosis; R65.21 Severe sepsis with septic shock; I76 Septic arterial embolism; G92.8 Other toxic encephalopathy; D69.6 Thrombocytopenia, unspecified; E87.1 Hypo-osmolality and hyponatremia; J18.8 Other pneumonia, unspecified organism; K22.11 Ulcer of esophagus with bleeding; Z20.822 Contact with and (suspected) exposure to COVID-19; I50.33 Acute on chronic diastolic (congestive) heart failure; E87.2 Acidosis; I47.1 Supraventricular tachycardia; F15.10 Other stimulant abuse, uncomplicated; I25.2 Old myocardial infarction; M62.82 Rhabdomyolysis; N39.0 Urinary tract infection, site not specified; E86.0 Dehydration; D50.9 Iron deficiency anemia, unspecified; F12.90 Cannabis use, unspecified, uncomplicated; F16.90 Hallucinogen use, unspecified, uncomplicated; I80.8 Phlebitis and thrombophlebitis of other sites; I82.1 Thrombophlebitis migrans; I82.621 Acute embolism and thrombosis of deep veins of right upper extremity; K29.71 Gastritis, unspecified, with bleeding; L03.90 Cellulitis, unspecified; R74.01 Elevation of levels of liver transaminase levels
CPT/HCPCS: 36415; 36600; 70551; 71045; 71250; 74176; 76700; 76937; 80048; 80053; 80061; 80076; 80202; 80305; 80320; 81003; 82270; 82375; 82550; 82553; 82607; 82728; 82746; 82805; 83036; 83540; 83550; 83605; 83735; 84100; 84145; 84439; 84443; 84484; 85014; 85018; 85025; 85044; 85651; 86140; 86635; 86698; 86705; 86709; 86803; 86850; 86900; 86920; 87076; 87077; 87186; 87340; 87389; 87426; 88305; 88312; 88313; 93005; 93306; 93970; 93971; 97116; 97162; 97166; 99291; C1725; C1769; C9113; J0295; J0696; J1650; J1885; J1940; J2060; J2250; J2370; J2405; J2543; J2704; J2765; J3370; J3480; J3490; J7030; J7050; J7060; P9016; G0480

== ENCOUNTER 2022-02-20 19:15 | Emergency (ER) | payer MEDICAID ==
[~2022-02-20] VITALS: Ht 180.3 cm; Wt 90.0 kg
[~2022-02-20 19:15] MED LIST: AMLO5TAB4 MT; PROT40 MT; SUCR1TAB30 MT
[2022-02-20 19:16] VITALS: BP 128/86
== END 2022-02-20 22:36 | disposition left against medical advice (07) ==
LOC: ER 19:15
DX: Z53.21 Procedure and treatment not carried out due to patient leaving prior to being seen by health care provider (principal)
CPT/HCPCS: 93005

== ENCOUNTER 2022-03-23 00:32 | Emergency (ER) | payer MEDICAID ==
[~2022-03-23] VITALS: Ht 175.3 cm; Wt 100.0 kg
[2022-03-23] MEDS ORDERED: ENOXAPARIN 100MG/ML SYR SUBCUT NR (04:00)
[2022-03-23 04:07] LABS: HEMATOCRIT 40.9 % (42.0-52.0); HEMOGLOBIN 13.3 g/dL (14.0-18.0); MEAN CORPUSCULAR HEMOGLOBIN 27.6 pg (28.0-32.0); MEAN CORPUSCULAR VOLUME 85.1 fL (80.0-94.0); PLATELET 283 x1000/uL (130-400)
[2022-03-23 04:21] LABS: CHLORIDE 101 mEq/L (98-107)
[2022-03-23 04:24] LABS: INR 1.1; PROTHROMBIN TIME 11.4 sec (9.6-11.0)
[2022-03-23 05:15] VITALS: BP 151/88
== END 2022-03-23 05:56 ==
LOC: ER 00:32 → CANBEDREQ 05:09 → ER 05:56
DX: I82.A12 Acute embolism and thrombosis of left axillary vein (principal); I82.622 Acute embolism and thrombosis of deep veins of left upper extremity; Z98.890 Other specified postprocedural states
CPT/HCPCS: 36415; 80053; 85027; 85610; 85730; 93971; 96372; 99284; J1650

== ENCOUNTER 2025-04-05 15:44 | Inpatient (IN) | payer MEDICAID ==
[~2025-04-05] VITALS: Ht 177.8 cm; Wt 108.6 kg
[~2025-04-05 15:44] MED LIST changes: -AMLO5TAB4 MT; +AMLO5TAB5 MT
[2025-04-05] MEDS: SODIUM CHLORIDE 0.9% (SEPSIS BOLUS) IV ONE (16:17)
[2025-04-05] MEDS: PIPERACILLIN/TAZO 3.375G/50ML 50 ML IV ONE (16:23)
[2025-04-05] MEDS: ACETAMINOPHEN 325MG TABLET PO ONE (16:24)
[2025-04-05 16:40] LABS: BASOPHILS % 0.3 % (0.0-2.0); HEMATOCRIT. 38.7 % (42.0-52.0); HEMOGLOBIN. 12.6 g/dL (14.0-18.0); LYMPHOCYTES % 11.6 % (20.0-50.0); MEAN CORPUSCULAR HEMOGLOBIN 28.3 pg (28.0-32.0); MEAN CORPUSCULAR HGB CONC 32.6 g/dL (31.0-37.0); MEAN CORPUSCULAR VOLUME 86.9 fL (80.0-94.0); MEAN PLATELET VOLUME 9.2 fl (7.4-10.4); MONOCYTES % 11.6 % (2.0-8.0); NEUTROPHILS % 75.5 % (40.0-76.0); PLATELET 232 x1000/uL (130-400); RED BLOOD CELL COUNT 4.45 mill/uL (4.7-6.1); RED CELL DISTRIBUTION WIDTH 13.4 % (11.6-14.6)
[2025-04-05] MEDS: VANCOMYCIN 1G PREMIX 200 ML IV ONE (16:40)
[2025-04-05 16:46] LABS: CHLORIDE 104 mEq/L (98-107); POTASSIUM 3.8 mEq/L (3.5-5.1); SODIUM 138 mEq/L (136-145)
[2025-04-05 16:47] LABS: CALCIUM 8.9 mg/dL (8.7-10.4); CARBON DIOXIDE 27 mEq/L (21-32)
[2025-04-05 16:52] LABS: CREATININE 1.2 mg/dL (0.6-1.3); GLUCOSE 110 mg/dL (70-105); UREA NITROGEN BLOOD 14 mg/dL (9-23)
[2025-04-05 17:27] LABS: INR 1.1; PROTHROMBIN TIME 11.7 sec (9.6-11.0)
[2025-04-05 19:30] VITALS: BP 146/95; PULSE 91; RESP 18; TEMP 36.3
[2025-04-05 20:00] VITALS: BP 146/95; PULSE 91; RESP 18; TEMP 36.2; O2SAT 95
[2025-04-05] MEDS ORDERED: ACETAMINOPHEN 325MG TABLET PO PRN ×2 (20:15)
[2025-04-05] MEDS ORDERED: DOCUSATE SODIUM 100MG CAPSULE PO PRN (20:15)
[2025-04-05] MEDS ORDERED: IPRATROPIUM/ALBUTEROL 0.5-3(2.5)MG/3ML NEB HHN PRN (20:15)
[2025-04-05] MEDS ORDERED: CLONIDINE 0.1MG TABLET PO PRN (20:15)
[2025-04-05] MEDS ORDERED: ONDANSETRON HCL 4MG/2ML INJ IV PRN (20:15)
[2025-04-05] MEDS ORDERED: GUAIFENESIN 200MG/10ML SUGAR FREE UDC PO PRN (20:15)
[2025-04-05] MEDS: SODIUM CHLORIDE 0.9% 1,000 ML IV SCH (21:53)
[2025-04-05] MEDS: PANTOPRAZOLE 40MG DR TABLET PO SCH (21:53)
[2025-04-05] MEDS: PIPERACILLIN/TAZO 3.375G/50ML 50 ML IV SCH (21:54)
[2025-04-05] MEDS: VANCOMYCIN 1GM PMX (XELLIA) 200 ML IV SCH (23:44)
[2025-04-06] VITALS: BP 120/69; PULSE 92; RESP 18; TEMP 36.3; O2SAT 97
[2025-04-06 00:12] LABS: *AMPHETAMINES SCREEN URINE PRESUMPTIVE POSITIVE (NEGATIVE)
[2025-04-06 00:13] LABS: *BARBITURATES SCREEN URINE NEGATIVE (NEGATIVE); *BENZODIAZEPINES SCREEN URINE NEGATIVE (NEGATIVE); *COCAINE SCREEN URINE NEGATIVE (NEGATIVE); CANNABINOID URINE SCREEN PRESUMPTIVE POSITIVE (NEGATIVE); METHADONE URINE SCREEN NEGATIVE (NEGATIVE); OPIATES URINE SCREEN NEGATIVE (NEGATIVE); PHENCYCLIDINE URINE SCREEN PRESUMTIVE POSITIVE (NEGATIVE)
[2025-04-06 00:14] LABS: ECSTASY MDMA SCREEN URINE NEGATIVE (NEGATIVE)
[2025-04-06 00:47] LABS: CLARITY URINE CLEAR (CLEAR); COLOR URINE YELLOW (YELLOW); GLUCOSE URINE NEGATIVE (NEGATIVE); KETONES URINE NEGATIVE (NEGATIVE); NITRITE URINE NEGATIVE (NEGATIVE); OCCULT BLOOD URINE NEGATIVE (NEGATIVE); PH URINE 7.5 (4.5-8.0); PROTEIN URINE NEGATIVE (NEGATIVE)
[2025-04-06 00:48] LABS: LEUKOCYTE ESTERASE URINE NEGATIVE (NEGATIVE)
[2025-04-06 04:00] VITALS: BP 128/77; PULSE 87; RESP 18; TEMP 36.3; O2SAT 98
[2025-04-06 06:40] LABS: HEMATOCRIT. 39.8 % (42.0-52.0); HEMOGLOBIN. 12.7 g/dL (14.0-18.0); MEAN CORPUSCULAR HEMOGLOBIN 27.8 pg (28.0-32.0); MEAN CORPUSCULAR HGB CONC 31.8 g/dL (31.0-37.0); MEAN CORPUSCULAR VOLUME 87.2 fL (80.0-94.0); MEAN PLATELET VOLUME 8.8 fl (7.4-10.4); PLATELET 242 x1000/uL (130-400); RED BLOOD CELL COUNT 4.56 mill/uL (4.7-6.1); RED CELL DISTRIBUTION WIDTH 13.4 % (11.6-14.6); WHITE BLOOD COUNT 7.9 x1000/uL (4.5-11.0)
[2025-04-06 06:59] LABS: DIFFERENTIAL COMMENT 1
[2025-04-06 07:04] LABS: CALCIUM 8.6 mg/dL (8.7-10.4); CARBON DIOXIDE 22 mEq/L (21-32); CHLORIDE 105 mEq/L (98-107); POTASSIUM 4.2 mEq/L (3.5-5.1); SODIUM 139 mEq/L (136-145)
[2025-04-06 07:08] LABS: T4 FREE 1.17 ng/dL (0.89-1.76); THYROID STIMULATING HORMONE 0.42 uIU/mL (0.55-4.78)
[2025-04-06 07:10] LABS: CREATININE 0.8 mg/dL (0.6-1.3); GLUCOSE 100 mg/dL (70-105); TRIGLYCERIDE 106 mg/dL (0-150); UREA NITROGEN BLOOD 9 mg/dL (9-23)
[2025-04-06 07:11] LABS: LDL CHOLESTEROL 99 mg/dL (5-100)
[2025-04-06 07:12] LABS: CHOLESTEROL 149 mg/dL (<200); HDL CHOLESTEROL 32 mg/dL (>55)
[2025-04-06 08:00] VITALS: BP 115/71; PULSE 75; RESP 18; TEMP 36.7; O2SAT 100
[2025-04-06] MEDS: AMLODIPINE 10MG TABLET PO SCH (10:03)
[2025-04-06 12:00] VITALS: BP 138/67; PULSE 84; RESP 20; TEMP 36.4; O2SAT 98
[2025-04-06 14:38] LABS: PLATELET ESTIMATE NORMAL
[2025-04-06] MEDS: VANCOMYCIN 1.25GM/250ML 250 ML IV SCH (15:14)
[2025-04-06 16:00] VITALS: BP 122/64; PULSE 81; RESP 18; TEMP 36.5; O2SAT 100
[2025-04-06] MEDS: FUROSEMIDE 40MG/4ML VIAL IVP NR (17:24)
[2025-04-06 20:00] VITALS: BP 141/76; PULSE 95; RESP 20; TEMP 36.2; O2SAT 98
[2025-04-06 20:52] LABS: HEMATOCRIT. 42.6 % (42.0-52.0); HEMOGLOBIN. 13.8 g/dL (14.0-18.0); MEAN CORPUSCULAR HGB CONC 32.5 g/dL (31.0-37.0); MEAN CORPUSCULAR VOLUME 86.2 fL (80.0-94.0); MEAN PLATELET VOLUME 8.8 fl (7.4-10.4); PLATELET 292 x1000/uL (130-400); RED BLOOD CELL COUNT 4.94 mill/uL (4.7-6.1); RED CELL DISTRIBUTION WIDTH 13.2 % (11.6-14.6); WHITE BLOOD COUNT 7.1 x1000/uL (4.5-11.0)
[2025-04-06 20:54] LABS: DIFFERENTIAL COMMENT 1
[2025-04-06 22:09] LABS: PLATELET ESTIMATE NORMAL
[2025-04-07] VITALS: BP 135/61; PULSE 100; RESP 20; TEMP 36.6; O2SAT 98
[2025-04-07 04:00] VITALS: BP 111/71; PULSE 76; RESP 20; TEMP 36.3; O2SAT 97
[2025-04-07 08:00] VITALS: BP 134/80; PULSE 87; RESP 18; TEMP 37.7; O2SAT 100
[2025-04-07 08:41] LABS: INFLUENZA TYPE A Presumptive Negative (Pres. Neg.)
[2025-04-07 08:42] LABS: INFLUENZA TYPE B Presumptive Negative (Pres. Neg.)
[2025-04-07 08:43] LABS: RESPIRATORY SYNCYTIAL VIRUS Not Detected (Not Detectd)
[2025-04-07 09:04] LABS: HEMATOCRIT. 42.8 % (42.0-52.0); HEMOGLOBIN. 13.8 g/dL (14.0-18.0); MEAN CORPUSCULAR HEMOGLOBIN 27.8 pg (28.0-32.0); MEAN CORPUSCULAR HGB CONC 32.2 g/dL (31.0-37.0); MEAN CORPUSCULAR VOLUME 86.3 fL (80.0-94.0); MEAN PLATELET VOLUME 8.9 fl (7.4-10.4); PLATELET 280 x1000/uL (130-400); RED BLOOD CELL COUNT 4.96 mill/uL (4.7-6.1); RED CELL DISTRIBUTION WIDTH 13.5 % (11.6-14.6); WHITE BLOOD COUNT 7.6 x1000/uL (4.5-11.0)
[2025-04-07 09:15] LABS: DIFFERENTIAL COMMENT 1
[2025-04-07 09:19] LABS: CHLORIDE 103 mEq/L (98-107); SODIUM 138 mEq/L (136-145)
[2025-04-07 09:20] LABS: CALCIUM 9.8 mg/dL (8.7-10.4); CARBON DIOXIDE 25 mEq/L (21-32)
[2025-04-07 09:25] LABS: CREATININE 1.1 mg/dL (0.6-1.3); GLUCOSE 129 mg/dL (70-105); UREA NITROGEN BLOOD 12 mg/dL (9-23)
[2025-04-07] MEDS ORDERED: CIPR-263 PO (10:48)
[2025-04-07] MEDS ORDERED: AMOX1TAB16 PO (10:48)
[2025-04-07] MEDS ORDERED: IBUP-2029 PO (10:48)
[2025-04-07 11:01] LABS: PLATELET ESTIMATE NORMAL
[2025-04-07 11:58] VITALS: BP 138/80; PULSE 82; TEMP 98.2; O2SAT 100
[2025-04-07 12:00] VITALS: BP 138/80; PULSE 82; RESP 18; TEMP 36.8; O2SAT 100
== END 2025-04-07 14:10 | disposition home or self-care (01) | DRG 720 ==
LOC: ER 15:44 → ENRESERV 17:55 → 6WST 18:10
PROVIDERS: ADMIT Internal Medicine; ATTEND Internal Medicine
DX: A41.9 Sepsis, unspecified organism (principal); L03.115 Cellulitis of right lower limb; L03.116 Cellulitis of left lower limb; F19.10 Other psychoactive substance abuse, uncomplicated; I10 Essential (primary) hypertension; Z79.899 Other long term (current) drug therapy; Z86.718 Personal history of other venous thrombosis and embolism
CPT/HCPCS: 36415; 71045; 73610; 80048; 80061; 80202; 80305; 81003; 83605; 84145; 84439; 84443; 85025; 87420; 87804; 93005; 93970; 97166; 99291; J1940; J2543; J3370; J7030